=== PATIENT | male | born 1990 | race American Indian/Alaskan Native ===

== ENCOUNTER 2018-08-12 17:37 | Emergency (ER) | payer BC ==
[2018-08-12 17:55] VITALS: BP 118/67
--- NOTE | 2018-08-12 19:40 | XRay Report ---
FINAL REPORT EXAM: XR CHEST ROUTINE 2V HISTORY: left chest pain with rom and deep breath TECHNIQUE: 2 views of the chest. PRIORS: None. FINDINGS: The cardiomediastinal silhouette appears normal. The lungs are clear. The bones and soft tissues are unremarkable. IMPRESSION: No evidence of acute cardiopulmonary disease
--- NOTE | 2018-08-12 19:54 | Emergency Department Report ---
ED Chest Pain HPI - General Chief Complaint: Chest Pain Stated Complaint: CHEST PAIN Time Seen by Provider: 08/12/18 18:37 Source: patient Mode of arrival: Ambulatory Limitations: No Limitations - History of Present Illness Initial Comments: 28-year-old -[place] male since emergency department with a few day history of left-sided chest discomfort, sharp achy fashion, worse with range of motion and deep breath. Reports no shortness of breath, no hemoptysis, hematemesis, no palpitations, no fever, chills, no sweats, no direct trauma. MD Complaint: chest pain Pain Location: left chest Severity: moderate Quality: aching, sharp Consistency: constant Improves With: nothing Worsens With: inspiration, palpation, movement re: denies: vomting, diaphoresis, sense of impending doom Other Symptoms: denies: fever, syncope, acid taste in mouth, leg swelling, palpitations, burping Treatments Prior to Arrival: none - Related Data Previous Rx's Medication Instructions Recorded Last Taken Type Ketorolac [Toradol] 10 mg PO Q6H PRN #15 tablet 08/12/18 Unknown Rx Allergies Allergy/AdvReac Type Severity Reaction Status Date / Time shellfish derived Allergy Hives Verified 08/12/18 17:51 Heart Score - HEART Score History: Slightly suspicious EKG: Normal Age: < 45 Risk factors: No known risk factors Troponin: < normal limit HEART Score: 0 ED Review of Systems ROS: Stated complaint: CHEST PAIN Other details as noted in HPI Constitutional: denies: chills, fever Eyes: denies: eye pain, eye discharge, vision change ENT: denies: ear pain, throat pain Respiratory: denies: cough, shortness of breath, wheezing Cardiovascular: denies: chest pain, palpitations Endocrine: no symptoms reported Gastrointestinal: denies: abdominal pain, nausea, diarrhea Genitourinary: denies: urgency, dysuria Musculoskeletal: denies: back pain, joint swelling, arthralgia Skin: denies: rash, lesions Neurological: denies: headache, weakness, paresthesias Psychiatric: denies: anxiety, depression Hematological/Lymphatic: denies: easy bleeding, easy bruising ED Past Medical Hx - Past Medical History Previous Medical History?: Yes Additional medical history: "heart problems as a child" - Surgical History Past Surgical History?: Yes Additional Surgical History: abd surgery as a child - Social History Smoking Status: Current Every Day Smoker Substance Use Type: None - Medications Home Medications: Home Medications Medication Instructions Recorded Confirmed Last Taken Type Ketorolac [Toradol] 10 mg PO Q6H PRN #15 tablet 08/12/18 Unknown Rx ED Physical Exam - General Limitations: No Limitations General appearance: alert, in no apparent distress - Head Head exam: Present: atraumatic, normocephalic - Eye Eye exam: Present: normal appearance - ENT ENT exam: Present: mucous membranes moist - Neck Neck exam: Present: normal inspection - Respiratory Respiratory exam: Present: normal lung sounds bilaterally, chest wall tenderness (tenderness to the intercostal region of the left chest with palpation. There is also pain with opponens a deduction as well. There is pain with full extension of the chest on the left side in the same area as well. No subcutaneous emphysema. No no bruising. No lifts, heaves or thrills. No step- offs noted. No flail chest. No there is symmetrical rise and fall. Lung soun ds are equal and bilateral and clear). Absent: respiratory distress, rales, rhonchi, stridor - Cardiovascular Cardiovascular Exam: Present: regular rate, normal rhythm. Absent: systolic murmur, diastolic murmur, rubs, gallop - GI/Abdominal GI/Abdominal exam: Present: soft, normal bowel sounds - Rectal Rectal exam: Present: deferred - Extremities Exam Extremities exam: Present: normal inspection - Back Exam Back exam: Present: normal inspection - Neurological Exam Neurological exam: Present: alert, oriented X3 - Psychiatric Psychiatric exam: Present: normal affect, normal mood - Skin Skin exam: Present: warm, dry, intact, normal color. Absent: rash ED Course Vital Signs 08/12/18 17:52 Temperature 97.8 F Pulse Rate 83 Respiratory 18 Rate Blood Pressure 118/67 O2 Sat by Pulse 98 Oximetry ANIL score - Anil Score Age > 65: (0) No Aspirin use within the Past 7 Days: (0) No 3 or more CAD Risk Factors: (0) No 2 or more Angina events in past 24 hrs: (0) No Known CAD with more than 50% Stenosis: (0) No Elevated Cardiac Markers: (0) No (no cardiac markers done) ST Deviation Greater than 0.5mm: (0) No ANIL Score: 0 ED Medical Decision Making - EKG Data Rate: normal - EKG Data Interpretation: normal EKG - Radiology Data Radiology results: report reviewed [facility] [address] [place] [address] XRay Report Signed Patient: ROBERTO DIXON MR#: [id number] : 1990 Acct:[id number] Age/Sex: 28 / M ADM Date: 08/12/18 Loc: ED Attending Dr: Ordering Physician: ERVIN MORTON Date of Service: 08/12/18 Procedure(s): XR chest routine 2V Accession Number(s): [id number] cc: ERVIN MORTON Fluoro Time In Minutes: FINAL REPORT EXAM: XR CHEST ROUTINE 2V HISTORY: left chest pain with rom and deep breath TECHNIQUE: 2 views of the chest. PRIORS: None. FINDINGS: The cardiomediastinal silhouette appears normal. The lungs are clear. The bones and soft tissues are unremarkable. IMPRESSION: No evidence of acute cardiopulmonary disease Transcribed By: MLG Dictated By: WOLFGANG MATA MD Electronically Authenticated By: WOLFGANG MATA MD Signed Date/Time: 08/12/181939 DD/ 41 TD/TT: 08/12/181941 - Medical Decision Making Mr. Dixon has no known family history of any acute coronary syndrome or risk factors. Pain does not allow with any acute coronary syndrome. Exam does not support any pneumonia or any other infectious processes. His pain appears to be secondary to musculoskeletal process. We'll try him on a muscle skillets regimen and have him follow-up with [facility] for evaluation and treatment recommendations. He denies return to emergency department should she experience any fever, shortness of breath, heart palpitations, any symptoms that suggested this is a chest pain is worsening Critical care attestation.: If time is entered above; I have spent that time in minutes in the direct care of this critically ill patient, excluding procedure time. ED Disposition Clinical Impression: Chest pain Disposition: DC-01 TO HOME OR SELFCARE Is pt being admited?: No Does the pt Need Aspirin: No Condition: Stable Instructions: Chest Pain (ED), Costochondritis (ED) Prescriptions: Ketorolac [Toradol] 10 mg PO Q6H PRN #15 tablet PRN Reason: Pain Referrals: [facility] [Provider Group] - 3-5 Days
== END 2018-08-12 20:26 | disposition home or self-care (01) ==
LOC: ED 17:37
DX: R07.89 Other chest pain (principal); F17.200 Nicotine dependence, unspecified, uncomplicated
CPT/HCPCS: 71046; 93005; 93010